=== PATIENT | female | born 1970 | race Two or more races ===

== ENCOUNTER → 2017-01-26 | Outpatient (CLI) | payer OTHER ==
[~2017-01-26] MED LIST: IOHEXOL 300 MG/ML 75 ML VIAL. IV ONE
--- NOTE | 2017-01-26 13:40 | RAD ---
PQRS Compliance Statement: One or more of the following individualized dose reduction techniques were utilized for this examination: 1. Automated exposure control 2. Adjustment of the mA and/or kV according to patient size 3. Use of iterative reconstruction technique CT angiogram of the chest Indication: Elevated d-dimer, shortness of breath Technique: CT angiogram of the chest with 75 mL of Omnipaque 300 IV contrast with multiplanar MIP reformats. Comparison: None Findings: Diagnostic quality PE study. There is no evidence of filling defects in the central, segmental or subsegmental pulmonary arteries. Heart is not enlarged. No pericardial or pleural effusion. No pathologically enlarged axillary, mediastinal or hilar lymph nodes. No focal consolidations. No abnormal pulmonary opacities or Interstitial fibrosis. Visualized sections through the liver, spleen, pancreas, adrenals are within normal limits. No suspicious bony lesions. Impression: No PE. No pneumonia.
== END | disposition home or self-care (01) ==
LOC: CT 11:08
PROVIDERS: ATTEND Family Medicine
DX: R79.1 Abnormal coagulation profile (principal); R79.9 Abnormal finding of blood chemistry, unspecified; E61.1 Iron deficiency; J45.998 Other asthma; G43.009 Migraine without aura, not intractable, without status migrainosus; R06.02 Shortness of breath; M79.661 Pain in right lower leg
CPT/HCPCS: 71275; Q9967

== ENCOUNTER 2017-08-21 09:29 | Emergency (ER) | payer OTHER ==
[~2017-08-21] VITALS: Ht 160 cm; Wt 96.6 kg
[2017-08-21] MEDS ORDERED: IV NORMAL SALINE 1,000ML 1,000 ML IV SCH (09:42)
[2017-08-21] MEDS ORDERED: ONDANSETRON PF 4 MG/2 ML VIAL. IV ONE (09:45)
[2017-08-21 09:59] LABS: BASO # 0.1 x10^3/uL (0.0-0.2); BASO % 0 % (0-3); EOS # 0.1 x10^3/uL (0.0-0.7); EOS % 1 % (0-3); HEMATOCRIT 31.2 % (36.0-47.0); HEMOGLOBIN 9.4 g/dL (12.0-15.5); LYMPH # 1.6 x10^3/uL (1.0-4.8); LYMPH % 12 % (24-48); MEAN CORPUSCULAR HEMOGLOBIN 20 pg (25-35); MEAN CORPUSCULAR HGB CONC 30 g/dL (31-37); MEAN CORPUSCULAR VOLUME 66 fL (79-100); MONO # 0.9 x10^3/uL (0.0-1.1); MONO % 7 % (0-9); NEUT # 10.3 x10^3uL (1.8-7.7); NEUT % 80 % (31-73); PLATELET COUNT 368 x10^3/uL (140-400); RED BLOOD COUNT 4.74 x10^6/uL (3.50-5.40); RED CELL DISTRIBUTION WIDTH 16.6 % (11.5-14.5); WHITE BLOOD COUNT 12.9 x10^3/uL (4.0-11.0)
[2017-08-21] MEDS ORDERED: IOHEXOL 300 MG/ML 75 ML VIAL. IV ONE ×2 (10:15→10:30)
[2017-08-21 10:23] LABS: ALBUMIN 3.6 g/dL (3.4-5.0); ALBUMIN/GLOBULIN RATIO 0.8 (1.0-1.7); ALK PHOS 66 U/L (46-116); ALT (SGPT) 32 U/L (14-59); ANION GAP 15 (6-14); AST (SGOT) 22 U/L (15-37); BLOOD UREA NITROGEN 10 mg/dL (7-20); BUN/CREATININE RATIO 14 (6-20); CALCIUM 9.5 mg/dL (8.5-10.1); CARBON DIOXIDE 22 mmol/L (21-32); CHLORIDE 102 mmol/L (98-107); CREATININE 0.7 mg/dL (0.6-1.0); GFR 90.5; GLUCOSE 143 mg/dL (70-99); LIPASE 68 U/L (73-393); POTASSIUM 3.5 mmol/L (3.5-5.1); SODIUM 139 mmol/L (136-145); TOTAL BILIRUBIN 0.5 mg/dL (0.2-1.0)
[2017-08-21 10:43] LABS: ANISOCYTOSIS SLIGHT; HYPOCHROMIA MOD; MICROCYTOSIS SLIGHT; OVALOCYTES OCC; PLT ESTIMATE ADEQUATE (ADEQUATE); POLYCHROMASIA SLIGHT; TEAR DROP CELLS OCC
[2017-08-21] MEDS ORDERED: IV NORMAL SALINE 1,000ML 1,000 ML IV ONE ×2 (10:45→12:15)
--- NOTE | 2017-08-21 10:45 | PHYS DOC ---
Past History Past Medical History: No Pertinent History Past Surgical History: , Hysterectomy Smoking: Non-smoker Alcohol Use: None Drug Use: None Adult General Chief Complaint Chief Complaint: NAUSEA/VOMITING/DIARRHEA HPI HPI 47-year-old female patient states she had uneventful total abdominal hysterectomy 1 week ago at [facility] patient states she had few episodes of a small amount of bowel movements without problem after her surgery. Patient states she woke up at the middle of night with severe generalized abdominal pain as a sharp pain with radiation to her back and associated with multiple episodes of nausea and vomiting and diarrhea. Patient states she had 5 or 6 episodes of nonbloody vomiting and 3 episodes of loose stool. Patient states her pain getting worse during episodes of vomiting. Patient complaining of chills and generalized weakness without fever, urinary symptoms, chest pain, vaginal bleeding, focal neuro deficit. Review of Systems Review of Systems Constitutional: Denies fever , reports chills Eyes: Denies change in visual acuity, redness, or eye pain [] HENT: Denies nasal congestion or sore throat [] Respiratory: Denies cough or shortness of breath [] Cardiovascular: No additional information not addressed in HPI [] GI: Reports abdominal pain, nausea, vomiting, diarrhea [] : Denies dysuria or hematuria [] Musculoskeletal: Denies back pain or joint pain [] Integument: Denies rash or skin lesions [] Neurologic: Denies headache, focal weakness or sensory changes [] Endocrine: Denies polyuria or polydipsia [] All other systems were reviewed and found to be within normal limits, except as documented in this note. Current Medications Current Medications Current Medications Medications (Trade) Dose Ordered Sig/Michael Start Time Stop Time Status Last Admin Dose Admin Fentanyl Citrate (Fentanyl 2ml Vial) 50 mcg 1X ONCE 08/21/17 09:45 08/21/17 10:07 DC 08/21/17 09:56 50 MCG Iohexol (Omnipaque 300 Mg/ml) 75 ml 1X ONCE 08/21/17 10:30 08/21/17 10:31 Ondansetron HCl (Zofran) 4 mg 1X ONCE 08/21/17 09:45 08/21/17 10:07 DC 08/21/17 09:55 4 MG Sodium Chloride 1,000 ml @ 1,000 mls/hr Q1H 08/21/17 09:42 08/21/17 10:41 08/21/17 09:55 1,000 MLS/HR Allergies Allergies Allergies Coded Allergies Type Severity Reaction Last Updated Verified No Known Drug Allergies 01/26/17 No Physical Exam Physical Exam Constitutional: Well developed, well nourished, moderate distress, non-toxic appearance. [] HENT: Normocephalic, atraumatic, bilateral external ears normal, oropharynx dry , no oral exudates, nose normal. [] Eyes: PERRLA, EOMI, conjunctiva normal, no discharge, pallor. [] Neck: Normal range of motion, no tenderness, supple, no stridor. [] Cardiovascular:Heart rate regular rhythm, no murmur [] Lungs & Thorax: Bilateral breath sounds clear to auscultation [] Abdomen: Bowel sounds hyperactive, generalized guarding and tenderness more in left side of abdomen, clean abdominal wall surgical wound without tenderness or sign of infection, no masses, no pulsatile masses. [] Skin: Clammy, dry, no erythema, no rash. [] Back: No tenderness, no CVA tenderness. [] Extremities: No tenderness, no cyanosis, no clubbing, ROM intact, no edema. [] Neurologic: Alert and oriented X 3, normal motor function, normal sensory function, no focal deficits noted. [] Psychologic: Affect normal, judgement normal, mood normal. [] Current Patient Data Vital Signs Vital Signs Date Time Temp Pulse Resp B/P (MAP) Pulse Ox O2 Delivery O2 Flow Rate FiO2 08/21/17 10:12 98.8 64 24 98 Room Air Lab Results Laboratory Tests Test 08/21/17 09:40 White Blood Count 12.9 x10^3/uL (4.0-11.0) H Red Blood Count 4.74 x10^6/uL (3.50-5.40) Hemoglobin 9.4 g/dL (12.0-15.5) L Hematocrit 31.2 % (36.0-47.0) L Mean Corpuscular Volume 66 fL (79-100) L Mean Corpuscular Hemoglobin 20 pg (25-35) L Mean Corpuscular Hemoglobin Concent 30 g/dL (31-37) L Red Cell Distribution Width 16.6 % (11.5-14.5) H Platelet Count 368 x10^3/uL (140-400) Neutrophils (%) (Auto) 80 % (31-73) H Lymphocytes (%) (Auto) 12 % (24-48) L Monocytes (%) (Auto) 7 % (0-9) Eosinophils (%) (Auto) 1 % (0-3) Basophils (%) (Auto) 0 % (0-3) Neutrophils # (Auto) 10.3 x10^3uL (1.8-7.7) H Lymphocytes # (Auto) 1.6 x10^3/uL (1.0-4.8) Monocytes # (Auto) 0.9 x10^3/uL (0.0-1.1) Eosinophils # (Auto) 0.1 x10^3/uL (0.0-0.7) Basophils # (Auto) 0.1 x10^3/uL (0.0-0.2) Platelet Estimate Pending Sodium Level 139 mmol/L (136-145) Potassium Level 3.5 mmol/L (3.5-5.1) Chloride Level 102 mmol/L (98-107) Carbon Dioxide Level 22 mmol/L (21-32) Anion Gap 15 (6-14) H Blood Urea Nitrogen 10 mg/dL (7-20) Creatinine 0.7 mg/dL (0.6-1.0) Estimated GFR (Cockcroft-Gault) 90.5 BUN/Creatinine Ratio 14 (6-20) Glucose Level 143 mg/dL (70-99) H Lactic Acid Level 2.7 mmol/L (0.4-2.0) H Calcium Level 9.5 mg/dL (8.5-10.1) Total Bilirubin 0.5 mg/dL (0.2-1.0) Aspartate Amino Transferase (AST) 22 U/L (15-37) Alanine Aminotransferase (ALT) 32 U/L (14-59) Alkaline Phosphatase 66 U/L (46-116) Creatine Kinase 108 U/L (26-192) Creatine Kinase MB (Mass) < 0.5 ng/mL (0.0-3.6) Creatine Kinase MB Relative Index 0.5 % (0-4) Troponin I Quantitative < 0.017 ng/mL (0-0.055) Total Protein 8.0 g/dL (6.4-8.2) Albumin 3.6 g/dL (3.4-5.0) Albumin/Globulin Ratio 0.8 (1.0-1.7) L Lipase 68 U/L (73-393) L EKG EKG EKG interpreted by me. EKG at 1045 showed normal sinus rhythm at rate of 64, left hanna axis deviation, otherwise normal EKG[] Radiology/Procedures Radiology/Procedures [] [address] [address] IMAGING REPORT Signed PATIENT: JAYLA POSADA ACCOUNT: [id number] : 1970 LOCATION: ER AGE: 47 SEX: F EXAM STATUS: REG ER ORD. PHYSICIAN: MARCELO CROFT MD REASON: nausea and vomiting and diarrhea after abdominal surgery PROCEDURE: CT ABD PELV W/ IV CONTRST ONLY CT abdomen and pelvis with contrast 08/21/2017 CLINICAL INDICATION: Recent hysterectomy last Sunday with abdominal pain vomiting and nausea. COMPARISON: None. TECHNIQUE: Multiple CT images of the abdomen and pelvis were obtained following the intravenous administration of 75 mL Omnipaque 300. *One or more of the following individualized dose reduction techniques were utilized for this examination: 1. Automated exposure control. 2. Adjustment of the mA and/or kV according to patient size. 3. Use of iterative reconstruction technique. FINDINGS: Heart size is normal. Visualized lung bases are clear. Gallbladder, spleen, adrenal glands, pancreas and kidneys are unremarkable. There is focal fatty infiltration the liver adjacent to the falciform. Abdominal aorta is normal in caliber. No retroperitoneal or mesenteric lymphadenopathy. Small and large bowel loops are normal in caliber without obstruction. Appendix is not discretely identified. There is moderate circumferential long segment mural thickening of the ileum extending to just proximal to the ileocecal junction with extensive subcutaneous mucosal edema, mucosal hyperenhancement and mild mesenteric edema. No pneumatosis intestinalis. There are mildly prominent fluid-filled dilated small bowel loops proximal to the mural thickening. There is trace abdominal and pelvic free fluid. There is mild scattered areas of extraperitoneal gas most prominent adjacent to the right external iliac vasculature series 2/image 61. Mildly distended unopacified urinary bladder demonstrates minimal intraluminal nondependent gas. Hysterectomy with the vaginal cuff unremarkable. No iliac or inguinal lymphadenopathy. There are no destructive osseous lesions. IMPRESSION: 1. Interval hysterectomy with extraperitoneal and anterior pelvic subcutaneous gas, stranding and minimal free fluid, favored to be postsurgical. 2. Long segment ileal mural thickening and mesenteric edema, concerning for infectious or inflammatory enteritis, ischemia is a less likely consideration. 3. Mildly distended fluid-filled small bowel loops proximal to the mural thickening, may represent a low-level functional obstruction due to inflammation. 4. Urinary bladder gas, likely due to recent catheterization. Electronically signed by: Abdullahi Kelly MD (08/21/2017 11:04 AM) [id number] Course & Med Decision Making Course & Med Decision Making Pertinent Labs and Imaging studies reviewed. (See chart for details) Evaluation of patient in ER showed 47-year-old female patient with history of total abdominal hysterectomy 1 week ago and nausea and vomiting and diarrhea since this morning with abdominal pain. Patient had active vomiting at arrival to ER and treated with IV fluid, fentanyl 2, Dilaudid, Zofran 2 with partial improvement of her condition. Labs showed elevation of white count and lactic acid and antibiotic was given. CT of abdomen and pelvis showed abnormal gas pattern with concern for ileus. Dr. Quinn was informed at 1130 and recommended to transfer patient to [facility]. [facility] transfer line informed at 1140 and stated [facility] does not have any available bed. Dr quinn was informed again at 1142 and [facility]. Patient's surgeon Dr Mera informed at 1148 and tried to find an open bed at [facility]. Patient informed about plan of care and waiting to have open bed at [facility]. 1436: After contacting with [facility] and [facility] transfer line and Dr Mera finally bed was available at 1430. Patient was comfortable and stated her pain improved after Dilaudid. Patient had stable vital signs. Repeat lactic acid was 0.8. Dragon Disclaimer Dragon Disclaimer This electronic medical record was generated, in whole or in part, using a voice recognition dictation system. Departure Departure: Impression: Primary Impression: Postoperative abdominal pain Additional Impressions: Nausea and vomiting Leukocytosis Anemia SIRS (systemic inflammatory response syndrome) Disposition: 05 XFER OTHER (At 1420) Condition: IMPROVED Referrals: THEE BYRD MD (PCP) Problem Qualifiers MARCELO CROFT MD August 21, 2017 10:45
--- NOTE | 2017-08-21 10:55 | EKG ---
[address] [address] Test Date: 2017-08-21 Test Time: 10:45:26 Pat Name: JAYLA POSADA Department: Room: Gender: F German Instructor: YUVAL : 1970 Requested By: MARCELO CROFT Order Number: [id number] Reading MD: Measurements Intervals [place] Rate: 64 P: 28 MI: 162 QRS: -23 QRSD: 82 T: 37 QT: 414 QTc: 431 Interpretive Statements SINUS RHYTHM LEFTWARD AXIS OTHERWISE NORMAL ECG RI6.01 No previous ECG available for comparison
[2017-08-21] MEDS ORDERED: METOCLOPRAMIDE HCL 10 MG/2 ML VIAL. IV ONE (11:00)
[2017-08-21] MEDS ORDERED: cefTRIAXone IV Push 1 GM VIAL. IVP ONE (11:00)
[2017-08-21 11:07] LABS: BACTERIA,URINE FEW /HPF (0-FEW); BILIRUBIN,URINE NEG (NEG); CLARITY,URINE HAZY; COLOR,URINE YELLOW; GLUCOSE,URINE NEG (NEG); NITRITE,URINE NEG (NEG); RBC,URINE OCC /HPF (0-2); SQUAMOUS EPITHELIAL CELL,UR FEW /LPF; UROBILINOGEN,URINE 0.2 mg/dL (0.2 mg/dL); WBC,URINE OCC /HPF (0-4)
--- NOTE | 2017-08-21 11:07 | RAD ---
CT abdomen and pelvis with contrast 08/21/2017 CLINICAL INDICATION: Recent hysterectomy last Sunday with abdominal pain vomiting and nausea. COMPARISON: None. TECHNIQUE: Multiple CT images of the abdomen and pelvis were obtained following the intravenous administration of 75 mL Omnipaque 300. *One or more of the following individualized dose reduction techniques were utilized for this examination: 1. Automated exposure control. 2. Adjustment of the mA and/or kV according to patient size. 3. Use of iterative reconstruction technique. FINDINGS: Heart size is normal. Visualized lung bases are clear. Gallbladder, spleen, adrenal glands, pancreas and kidneys are unremarkable. There is focal fatty infiltration the liver adjacent to the falciform. Abdominal aorta is normal in caliber. No retroperitoneal or mesenteric lymphadenopathy. Small and large bowel loops are normal in caliber without obstruction. Appendix is not discretely identified. There is moderate circumferential long segment mural thickening of the ileum extending to just proximal to the ileocecal junction with extensive subcutaneous mucosal edema, mucosal hyperenhancement and mild mesenteric edema. No pneumatosis intestinalis. There are mildly prominent fluid-filled dilated small bowel loops proximal to the mural thickening. There is trace abdominal and pelvic free fluid. There is mild scattered areas of extraperitoneal gas most prominent adjacent to the right external iliac vasculature series 2/image 61. Mildly distended unopacified urinary bladder demonstrates minimal intraluminal nondependent gas. Hysterectomy with the vaginal cuff unremarkable. No iliac or inguinal lymphadenopathy. There are no destructive osseous lesions. IMPRESSION: 1. Interval hysterectomy with extraperitoneal and anterior pelvic subcutaneous gas, stranding and minimal free fluid, favored to be postsurgical. 2. Long segment ileal mural thickening and mesenteric edema, concerning for infectious or inflammatory enteritis, ischemia is a less likely consideration. 3. Mildly distended fluid-filled small bowel loops proximal to the mural thickening, may represent a low-level functional obstruction due to inflammation. 4. Urinary bladder gas, likely due to recent catheterization. Electronically signed by: Abdullahi Kelly MD (08/21/2017 11:04 AM) [id number]
[2017-08-21] MEDS ORDERED: HYDROmorphone PF 2 MG/ML VIAL ONE (11:58)
[2017-08-21] MEDS ORDERED: IV NORMAL SALINE 250ML 250 ML ONE (12:19)
[2017-08-21] MEDS ORDERED: VANCOMYCIN 1 GM VIAL. ONE (12:19)
[2017-08-21] MEDS ORDERED: LIDOCAINE 1% Multi-Dose 20 ML VIAL. ONE (12:20)
[2017-08-21] MEDS ORDERED: HYDROmorphone PF 2 MG/ML VIAL IV ONE (12:20)
[2017-08-21] MEDS ORDERED: VANCOMYCIN 1 GM in IV NORMAL SALINE 250ML 250 ML IV ONE (12:30)
[2017-08-21 15:31] VITALS: BP 123/82
== END 2017-08-21 15:37 | disposition short-term general hospital (02) ==
LOC: ER 09:29
DX: R19.7 Diarrhea, unspecified (principal); R65.10 Systemic inflammatory response syndrome (SIRS) of non-infectious origin without acute organ dysfunction; G89.18 Other acute postprocedural pain; D64.9 Anemia, unspecified; D72.829 Elevated white blood cell count, unspecified; Z90.710 Acquired absence of both cervix and uterus
CPT/HCPCS: 36415; 74177; 80053; 81001; 82553; 83605; 83690; 84484; 85025; 86850; 86900; 86901; 87040; 93005; 96361; 96365; 96375; 96376; 99285; J0696; J1170; J2405; J2765; J3010; J3370; J7050; Q9967; J7030

== ENCOUNTER 2017-09-06 15:28 | Inpatient (IN) | payer OTHER ==
[2017-09-06] VITALS (8 sets, daily range): BP systolic 121–147; BP diastolic 73–90
[~2017-09-06] VITALS: Ht 161.3 cm; Wt 96.2 kg
[2017-09-06] MEDS ORDERED: HEPARIN 25,000UTS/500ML PREMIX 500 ML IV PRN ×2 (16:15→19:30)
[2017-09-06] MEDS ORDERED: HEPARIN for IV BOLUS 10,000 UNIT/10 ML VIAL. IV PRN ×4 (16:30→19:30)
[2017-09-06] MEDS ORDERED: ALBU18HF IH (17:18)
[2017-09-06] MEDS ORDERED: ALBUTEROL SULFATE 8GM INHALER. IH PRN (17:45)
[2017-09-06] MEDS ORDERED: ALBUTEROL SULFATE 2.5 MG/3 ML NEBU. NEB PRN (17:45)
[2017-09-06] MEDS ORDERED: HEPARIN for IV BOLUS 10,000 UNIT/10 ML VIAL. IV ONE (19:45)
[2017-09-06 19:49] LABS: BASO # 0.2 x10^3/uL (0.0-0.2); BASO % 1 % (0-3); EOS # 0.2 x10^3/uL (0.0-0.7); EOS % 2 % (0-3); HEMATOCRIT 27.9 % (36.0-47.0); HEMOGLOBIN 8.4 g/dL (12.0-15.5); LYMPH # 2.3 x10^3/uL (1.0-4.8); LYMPH % 21 % (24-48); MEAN CORPUSCULAR HEMOGLOBIN 20 pg (25-35); MEAN CORPUSCULAR HGB CONC 30 g/dL (31-37); MEAN CORPUSCULAR VOLUME 65 fL (79-100); MONO # 1.1 x10^3/uL (0.0-1.1); MONO % 10 % (0-9); NEUT # 7.2 x10^3uL (1.8-7.7); NEUT % 66 % (31-73); PLATELET COUNT 450 x10^3/uL (140-400); RED BLOOD COUNT 4.29 x10^6/uL (3.50-5.40); RED CELL DISTRIBUTION WIDTH 17.4 % (11.5-14.5)
[2017-09-06] MEDS ORDERED: oxyCODONE/APAP 5/325 1 TAB TABLET PO PRN (20:45)
[2017-09-06] MEDS ORDERED: ZOLPIDEM 5 MG TABLET. PO PRN (20:45)
[2017-09-06] MEDS: HEPARIN 25,000UTS/500ML PREMIX 500 ML IV PRN (21:20)
[2017-09-06 21:45] LABS: BACTERIA,URINE 0 /HPF (0-FEW); BILIRUBIN,URINE NEG (NEG); CLARITY,URINE HAZY; COLOR,URINE YELLOW; GLUCOSE,URINE NEG (NEG); NITRITE,URINE NEG (NEG); RBC,URINE RARE /HPF (0-2); SQUAMOUS EPITHELIAL CELL,UR MANY /LPF; UROBILINOGEN,URINE 0.2 mg/dL (0.2 mg/dL); WBC,URINE RARE /HPF (0-4)
[2017-09-06 22:51] LABS: ANISOCYTOSIS SLIGHT; BURR CELLS FEW; HYPOCHROMIA MOD; MICROCYTOSIS MOD; OVALOCYTES FEW; PLT ESTIMATE INCREASED (ADEQUATE); POLYCHROMASIA PRESENT
[2017-09-07] VITALS (22 sets, daily range): BP systolic 111–138; BP diastolic 67–91
[2017-09-07 04:21] LABS: CALCIUM 8.4 mg/dL (8.5-10.1); CREATININE 0.6 mg/dL (0.6-1.0); GFR 108.1; POTASSIUM 3.7 mmol/L (3.5-5.1)
[2017-09-07 04:37] LABS: BASO # 0.1 x10^3/uL (0.0-0.2); BASO % 1 % (0-3); EOS # 0.2 x10^3/uL (0.0-0.7); EOS % 2 % (0-3); HEMATOCRIT 26.5 % (36.0-47.0); HEMOGLOBIN 8.2 g/dL (12.0-15.5); LYMPH # 2.9 x10^3/uL (1.0-4.8); LYMPH % 33 % (24-48); MEAN CORPUSCULAR HEMOGLOBIN 20 pg (25-35); MEAN CORPUSCULAR HGB CONC 31 g/dL (31-37); MEAN CORPUSCULAR VOLUME 65 fL (79-100); MONO % 11 % (0-9); NEUT # 4.6 x10^3uL (1.8-7.7); NEUT % 53 % (31-73); PLATELET COUNT 400 x10^3/uL (140-400); RED BLOOD COUNT 4.07 x10^6/uL (3.50-5.40); RED CELL DISTRIBUTION WIDTH 17.6 % (11.5-14.5); WHITE BLOOD COUNT 8.7 x10^3/uL (4.0-11.0)
[2017-09-07] MEDS: HEPARIN 25,000UTS/500ML PREMIX 500 ML IV PRN (15:44)
[2017-09-08] VITALS (8 sets, daily range): BP systolic 108–135; BP diastolic 64–86
[2017-09-08] MEDS ORDERED: FERROUS SULFATE 325 MG TABLET. PO SCH (08:00)
[2017-09-08] MEDS ORDERED: RIVAROXABAN 15 MG TABLET. PO SCH (09:00)
--- NOTE | 2017-09-08 09:21 | PN ---
DATE: SUBJECTIVE: A 47-year-old female with a clot in her right arm and then had shortness of breath. She still has a very bad coughing spasm. As a result of this, the patient has been placed on a heparin drip to help her with her situation with the clot in the right lung as noted, see CTA. OBJECTIVE: VITAL SIGNS: Otherwise, her vital signs seem to be somewhat stable. Blood pressure 138/91, respiratory rate 18, pulse 86. LUNGS: Diminished, but primarily clear. CARDIOVASCULAR: Regular sinus rhythm, S1, S2, without murmur, rub, thrill, extra heart sound. LUNGS: Decreased on the right side. EXTREMITIES: No clubbing, cyanosis or edema. NEUROLOGIC: The patient is stable. We will go ahead and continue to monitor patient for this clot and turn her over to oral medications and make further evaluation on that. Also, she is also ____ anemia, iron levels very low (NC). IMPRESSION: Pulmonary emboli and also clot in the right arm as well, increased bronchospasm as a result of the pulmonary emboli. THEE BYRD MD DR: MURALI/suzy JOB#: [id number] / [id number]
[2017-09-08] MEDS ORDERED: RIVA10TA PO (10:49)
[2017-09-08] MEDS ORDERED: FERR325T72 PO (10:49)
--- NOTE | 2017-09-08 20:59 | DS ---
DATE OF DISCHARGE: 09/08/2017 HOSPITAL COURSE: A 47-year-old female discharged today came in with increased shortness of breath, apparently had a recent surgery developed a clot in her right arm and then now in her right lung. She had pulmonary emboli. She is also noted to be anemic. She was placed on heparin because of her increased coughing and shortness of breath and she did reasonably well there and the patient made good progress overall. The patient will be discharged home on Xarelto 15 mg b.i.d. for 21 days and then switched over to 20 mg once a day. Otherwise, her labs look basically stable except for a low hemoglobin and of 8.2 and 26. The patient also was iron deficient. She was unable apparently to produce any stools for a Hemoccults. Otherwise, the patient is resting fairly comfortably. She is making good progress. She will be discharged home. Follow up as an outpatient and make further evaluation on her as an outpatient. IMPRESSION AND PLAN: Pulmonary emboli to the right lung, thrombophlebitis of the right arm, iron-deficiency anemia. She will be on a regular diet, decreased activity, iron supplementation entertained. THEE BYRD MD DR: MURALI/suzy JOB#: [id number] / [id number]
== END 2017-09-08 11:23 | disposition home or self-care (01) | DRG 176 ==
LOC: ICU 15:28
PROVIDERS: ADMIT Family Medicine; ATTEND Family Medicine
DX: I26.99 Other pulmonary embolism without acute cor pulmonale (principal); I80.8 Phlebitis and thrombophlebitis of other sites; D50.9 Iron deficiency anemia, unspecified; J98.01 Acute bronchospasm; Z79.01 Long term (current) use of anticoagulants; Z90.710 Acquired absence of both cervix and uterus
CPT/HCPCS: 36415; 80048; 81001; 83540; 83550; 85025; 85610; 85730; 87641; J1644

== ENCOUNTER → 2017-09-06 | Outpatient (CLI) | payer OTHER ==
[2017-08-21 15:31] VITALS: BP 123/82
[~2017-09-06] MED LIST changes: +ALBU18HF IH; +FERR325T72 PO; +RIVA10TA PO
--- NOTE | 2017-09-06 15:10 | RAD ---
Indication: Elevated d-dimer and short of air. Technique: Axial images and maximum intensity projection coronal and sagittal reformatted images are provided. 75 mL of intravenous Omnipaque 300 was administered without complication. Comparison is from January 26, 2017. Critical result of pulmonary embolism was discussed with Jaimie, nurse for Dr. Adams, at 1503 hours. One or more of the following individualized dose reduction techniques were utilized for this examination: 1. Automated exposure control 2. Adjustment of the mA and/or kV according to patient size 3. Use of iterative reconstruction technique Findings: The exam is positive for pulmonary embolism involving lobar and segmental arteries to the right lower lobe and middle lobe. There is no central pulmonary embolus. There is no evidence of heart strain. There is mild ectasia of the ascending aorta, measures up to 4 cm in diameter. Heart is not enlarged. There is no hilar or mediastinal adenopathy. Central airways are patent. There is no pleural effusion. There is dependent atelectasis. There are small pulmonary nodules abutting the pleura up to 3 mm in size versus areas of microatelectasis. There is no evidence of pulmonary infarct or consolidation. There is fatty infiltration of the liver. Bony structures are intact. IMPRESSION: 1. Exam is positive for pulmonary embolism involving right middle lobe and right lower lobe lobar and segmental arteries. There is no evidence of heart strain. 2. Small pulmonary nodules. No further workup is required in a low-risk patient, 12 month follow-up can be considered in a high-risk patient, recommendations are per Fleischner Society 2017 guidelines. Electronically signed by: Osorio Cancino MD (09/06/2017 3:07 PM) [id number]
== END | disposition home or self-care (01) ==
LOC: CT 14:07
PROVIDERS: ATTEND Family Medicine
DX: I26.99 Other pulmonary embolism without acute cor pulmonale (principal); J98.11 Atelectasis; R91.8 Other nonspecific abnormal finding of lung field; R56.9 Unspecified convulsions
CPT/HCPCS: 71275; Q9967

== ENCOUNTER → 2020-01-16 | Outpatient (CLI) | payer OTHER ==
[2017-09-08 09:15] VITALS: BP 118/70
[~2020-01-16] MED LIST changes: -ALBU18HF IH; +ALBU2.5V8 IH; -IOHEXOL 300 MG/ML 75 ML VIAL. IV ONE
--- NOTE | 2020-01-16 13:57 | RAD ---
ANKLE LEFT 3V DATE: 01/16/2020 12:00 AM INDICATION: Reason: LEFT ANKLE PAIN, EDEMA, FELL DOWNSTAIRS 3-4 WEEKS AGO / Spl. Instructions: / History: COMPARISON: None. FINDINGS: Bones: There is no evidence of acute fracture or dislocation. Small posterior and plantar calcaneal enthesophytes. Joints: The ankle mortise is congruent. No widening of the distal tibiofibular syndesmosis. Miscellaneous: None. IMPRESSION: No evidence of acute fracture. Electronically signed by: Dakotah Armando MD (01/16/2020 1:55 PM) JAMES
== END | disposition home or self-care (01) ==
LOC: DXRAD 11:59
PROVIDERS: ATTEND Nurse Practitioner Family
DX: M77.32 Calcaneal spur, left foot (principal); R60.0 Localized edema
CPT/HCPCS: 73610

== ENCOUNTER → 2020-07-06 | Outpatient (CLI) | payer OTHER ==
[2017-09-08 09:15] VITALS: BP 118/70
--- NOTE | 2020-07-13 09:06 | RAD ---
DATE: 07/06/2020 11:25 AM EXAM: DIGITAL SCREEN BILAT W/CAD HISTORY: Screening COMPARISON: 08/08/2017 Bilateral full field craniocaudal and mediolateral oblique images were obtained using digital technique. This study was interpreted with the benefit of Computerized Aided Detection (CAD). FINDINGS: Breast Density: FATTY The Breast Parenchyma is primarily fatty replaced. Breast parenchyma level density A. No suspicious masses, microcalcifications or architectural distortion is present to suggest malignancy in either breast. The visualized axillae are unremarkable. IMPRESSION: No mammographic evidence of malignancy. BI-RADS CATEGORY: 1 NEGATIVE RECOMMENDED FOLLOW-UP: 12M 12 MONTH FOLLOW-UP Annual screening mammography is recommended, unless clinically indicated sooner based on symptoms or change in physical exam. PQRS compliance statement: Patient information was entered into a reminder system with a target due date for the next mammogram. Mammography is a sensitive method for finding small breast cancers, but it does not detect them all and is not a substitute for careful clinical examination. A negative mammogram does not negate a clinically suspicious finding and should not result in delay in biopsying a clinically suspicious abnormality. "Our facility is accredited by the [employer] Mammography Program."
== END ==
LOC: MAMMO 11:14
PROVIDERS: ATTEND Nurse Practitioner Family
DX: Z12.31 Encounter for screening mammogram for malignant neoplasm of breast (principal)
CPT/HCPCS: 77067

== ENCOUNTER → 2021-03-09 | Outpatient (CLI) | payer OTHER ==
[2017-09-08 09:15] VITALS: BP 118/70
[2021-03-09 11:15] LABS: ALBUMIN/GLOBULIN RATIO 1.1 (1.0-1.7); CALCIUM 9.1 mg/dL (8.5-10.1); CREATININE 0.7 mg/dL (0.6-1.0); GFR 89.3; POTASSIUM 4.2 mmol/L (3.5-5.1); TOTAL BILIRUBIN 0.4 mg/dL (0.2-1.0); TOTAL PROTEIN 7.5 g/dL (6.4-8.2)
[2021-03-09 11:58] LABS: BASO # 0.1 x10^3/uL (0.0-0.2); BASO % 1 % (0-3); EOS # 0.2 x10^3/uL (0.0-0.7); EOS % 2 % (0-3); HEMATOCRIT 45.8 % (36.0-47.0); LYMPH # 2.4 x10^3/uL (1.0-4.8); LYMPH % 36 % (24-48); MEAN CORPUSCULAR HEMOGLOBIN 29 pg (25-35); MEAN CORPUSCULAR HGB CONC 33 g/dL (31-37); MEAN CORPUSCULAR VOLUME 87 fL (79-100); MONO # 0.8 x10^3/uL (0.0-1.1); MONO % 12 % (0-9); NEUT # 3.3 x10^3uL (1.8-7.7); NEUT % 49 % (31-73); PLATELET COUNT 259 x10^3/uL (140-400); RED BLOOD COUNT 5.24 x10^6/uL (3.50-5.40); RED CELL DISTRIBUTION WIDTH 14.6 % (11.5-14.5); WHITE BLOOD COUNT 6.7 x10^3/uL (4.0-11.0)
[2021-03-09 14:28] LABS: FREE T4 1.08 ng/dL (0.76-1.46); THYROID STIM HORMONE (TSH) 2.107 uIU/mL (0.358-3.740)
[2021-03-10 01:07] LABS: HEMOGLOBIN A1C 6.2 % (4.8-5.6)
== END ==
LOC: SPEC 10:04
PROVIDERS: ATTEND Nurse Practitioner Primary Care
DX: I10 Essential (primary) hypertension (principal); R73.03 Prediabetes; D64.9 Anemia, unspecified; E55.9 Vitamin D deficiency, unspecified; R07.9 Chest pain, unspecified; Z86.711 Personal history of pulmonary embolism
CPT/HCPCS: 36415; 80053; 80061; 82306; 83036; 84439; 84443; 85025; 85379

== ENCOUNTER → 2021-05-30 | Outpatient (CLI) | payer OTHER ==
[2017-09-08 09:15] VITALS: BP 118/70
[~2021-05-30] MED LIST changes: +IOHEXOL 350 MG/ML 100 ML VIAL. IV ONE; +IOHEXOL 350 MG/ML 100 ML VIAL. ONE
--- NOTE | 2021-05-30 10:57 | RAD ---
EXAM: Abdomen sonogram. HISTORY: Elevated liver enzyme laboratory values. TECHNIQUE: Sonographic imaging of the abdomen was performed. COMPARISON: 08/21/2017. FINDINGS: There is hepatomegaly and hepatic steatosis. No focal hepatic lesion is seen. The gallbladd er is unremarkable. The common bile duct is normal in caliber. The right kidney, pancreas and if reyna cated are unremarkable. IMPRESSION: 1. Hepatomegaly and hepatic steatosis. 2. No acute sonographic finding. Electronically signed by: Karrie Valencia MD (05/30/2021 10:54 AM) [id number]
--- NOTE | 2021-05-30 11:08 | RAD ---
CTA chest with contrast dated 05/30/2021. COMPARISON: 09/06/2017. INDICATION: Chest pain. TECHNIQUE: Contiguous axial imaging the chest performed following the intravenous administration of 100 cc Omnip aque 350. Study was performed as dedicated PE protocol with thin cut coronal MIPS 3-D reconstruction. One or more of the following individualized dose reduction techniques were utilized for this examinat ion: 1. Automated exposure control 2. Adjustment of the mA and/or kV according to patient size 3. Use of iterative reconstruction technique FINDINGS: Heart size is upper limits of normal. There is ectasia of the ascending thoracic aorta measuring 3.9 cm transverse. No intimal flap. Descending thoracic aorta normal in caliber. Contrast bolus is adequate. No evidence of central, lobar or segmental pulmonary embolus. Subsegmenta l branches are not well evaluated based on technique. There is an enlarged right paratracheal lymph node that measures approximately 1.9 cm short axis. Thi s appears to have increased in size from prior study where it measured about 1.6 cm previously. There is also enlarged lymph nodes in the pretracheal region and subcarinal region that have mildly increa sed in size. Borderline enlarged right hilar lymph node. Nonpathologic enlarged right axillary and le ft axillary lymph nodes. Thyroid gland is unremarkable. Central airways are patent. Mild diffuse bronchial wall thickening. Noncalcified subpleural nodule in the anterior aspect of the right upper lobe measures about 3 mm, unchanged. No new parenchymal nodul e or mass. No pleural effusion. Images of the upper abdomen are unremarkable. There are borderline enlarged jeanette caval and jeanette hep atic lymph nodes with borderline enlarged lymph nodes at the gastrohepatic ligament, similar to prior study. Bone windows show no acute findings. Multilevel spondylosis. IMPRESSION: 1. No evidence of central, lobar or segmental pulmonary embolus. 2. There are enlarged lymph nodes in the mediastinum that appears somewhat increased in size from the 2018 exam, nonspecific. Consider infectious, inflammatory or neoplastic etiology. There are also bor derline enlarged lymph nodes in the upper abdomen that are unchanged. 3. Mild ectasia of the ascending thoracic aorta. Electronically signed by: Jacoby Al MD (05/30/2021 11:06 AM) [facility]
== END ==
LOC: CT 10:14
PROVIDERS: ATTEND Nurse Practitioner Primary Care
DX: R16.0 Hepatomegaly, not elsewhere classified (principal); K76.0 Fatty (change of) liver, not elsewhere classified; I77.810 Thoracic aortic ectasia; R59.0 Localized enlarged lymph nodes; J98.8 Other specified respiratory disorders; M47.819 Spondylosis without myelopathy or radiculopathy, site unspecified; Z86.711 Personal history of pulmonary embolism
CPT/HCPCS: 71275; 76705; Q9967